=== PATIENT | female | born 1970 | race Two or more races ===

== ENCOUNTER 2018-12-06 10:31 | Emergency (ER) | payer OTHER ==
[2018-12-06 10:45] VITALS: BP 139/86; PULSE 72; TEMP 98.3; BMI 32.9
--- NOTE | 2018-12-06 12:04 | PDOC ---
History of Present Illness - General Chief Complaint: Injury Stated Complaint: FALL Time Seen by Provider: 12/06/18 11:12 - History of Present Illness Initial Comments: 12/06/18 11:59 48-year-old female without comorbidities presents for evaluation of left wrist pain after a fall on an outstretched hand which occurred today. She did not hit her head. She points to the dorsum of the left wrist as the area of her discomfort. Past History - Past Medical History Allergies/Adverse Reactions: Allergies Allergy/AdvReac Type Severity Reaction Status Date / Time No Known Allergies Allergy Verified 12/06/18 10:42 Home Medications: Ambulatory Orders NK [No Known Home Medication] 12/06/18 COPD: No - Suicide/Smoking/Psychosocial Hx Smoking History: Never smoked Review of Systems - Review of Systems Musculoskeletal: Yes: Joint Pain *Physical Exam - Vital Signs Last Vital Signs Temp Pulse Resp BP Pulse Ox 98.3 F 72 18 139/86 99 12/06/18 10:43 12/06/18 10:43 12/06/18 10:43 12/06/18 10:43 12/06/18 10:43 - Physical Exam Comments: 12/06/18 12:02 Left wrist skin color and temperature are normal. There is mild swelling at the dorsum of the carpus. There is tenderness about the area of the scapholunate. No snuffbox tenderness no tenderness at the distal radius. No ulnar styloid tenderness. No gross sensorimotor deficits. She is neurovascularly intact. ED Treatment Course - RADIOLOGY Radiology Studies Ordered: Category Date Time Status WRIST-LEFT [RAD] Stat Radiology 12/06/18 11:27 Ordered Medical Decision Making - Medical Decision Making 12/06/18 12:02 X-ray show mild scapholunate widening. Wrist splint follow-up with orthopedic discussed the use of Tylenol and Motrin for pain. *DC/Admit/Observation/Transfer Diagnosis at time of Disposition: Sprain of wrist, left - Discharge Dispostion Disposition: HOME Condition at time of disposition: Stable Decision to Admit order: No - Referrals Referrals: Aren Beal DO [Staff Physician] - - Patient Instructions Printed Discharge Instructions: Wrist Sprain, DI for Wrist Sprain Additional Instructions: Return to the emergency room for worsening symptoms. Please wear the wrist splint until seen by orthopedic surgery. He may remove the splint for hygiene. Return to the emergency room for worsening symptoms and follow-up with orthopedic surgery in 1-2 days for further evaluation and treatment options. Tylenol and Motrin as directed for pain. - Post Discharge Activity
== END 2018-12-06 12:05 | disposition home or self-care (01) ==
LOC: JERFT 10:31
PROC: 2W3DX1Z Immobilization of Left Lower Arm using Splint (ICD-10-PCS; principal; 2018-12-06)
DX: S63.502A Unspecified sprain of left wrist, initial encounter (principal); W18.39XA Other fall on same level, initial encounter; Y93.89 Activity, other specified; Y92.9 Unspecified place or not applicable
CPT/HCPCS: 73110-TC-LT-FY; 99281-25